=== PATIENT | male | born 1985 | race Caucasian/White ===

== ENCOUNTER 2017-03-07 22:33 | Emergency (ER) | payer OTHER ==
[~2017-03-07] VITALS: Ht 172.7 cm; Wt 116.2 kg
[~2017-03-07 22:33] MED LIST: AMOXICILLIN500 MG PO; ROBITUSSIN AC10 ML PO; TESSALON PER100 MG PO; ZITHROMAX250 MG PO
[2017-03-07] MEDS ORDERED: LORTAB 10-325 M1 TAB PO (23:42)
[2017-03-08] VITALS: BP 154/68
== END 2017-03-08 00:12 | disposition home or self-care (01) | DRG 563 ==
LOC: ED 22:33
DX: S42.021A Displaced fracture of shaft of right clavicle, initial encounter for closed fracture (principal); S40.211A Abrasion of right shoulder, initial encounter; S60.511A Abrasion of right hand, initial encounter; V28.0XXA Motorcycle driver injured in noncollision transport accident in nontraffic accident, initial encounter; Y92.413 State road as the place of occurrence of the external cause; Y93.I9 Activity, other involving external motion